=== PATIENT | female | born 1960 | race Caucasian/White ===

== ENCOUNTER 2023-11-05 14:40 | Emergency (ER) | payer MEDICARE, SELFPAY ==
[2023-11-05 14:47] VITALS: BP 95/65
--- NOTE | 2023-11-05 15:55 | ED.GENMED ---
History of Present Illness
General
Chief Complaint: Abdominal Symptoms
Source: patient
Exam Limitations: none
Time Seen by Provider: 11/05/23 15:47
Travel History
Have you had any contact with someone who has COVID-19?: No
Do you have any symptoms of coronavirus? Fever > 100 degrees, chills, cough, shortness of breath, sore throat, loss of taste or smell, muscle aches, or headache?: No
History of Present Illness
History of Present Illness:
63-year-old female presents with epigastric pain nausea lightheaded feeling. Started about 30 minutes after taking a Tylenol with codeine. Tylenol with codeine was taken for ongoing dental issues. She saw her dentist this morning. This was the
first dose of Tylenol with codeine. Medication was for a suspected fractured left lower molar. She is scheduled for root canal evaluation. Following the nausea and vomiting she had about 30 minutes of substernal chest pain. No radiation to the
back. No shortness of breath. The symptoms have resolved. Currently feeling improved but still has some mild nausea and some mild lightheaded feeling.
Past History
Past History
ED Past Medical History: Other (Migraines)
ED Past Surgical History: Cholecystectomy and Gynecological
Review of Systems
Review of Systems
All Other Systems: Not applicable
Constitutional: Denies fever
Respiratory: Denies trouble breathing
ABD/GI: Denies diarrhea, bloody stools or black stools
Phy Exam
Physical Exam
Physical Exam:
GENERAL: Alert and oriented in no apparent distress
EYE: Orbits normal.
NECK: Supple, no significant adenopathy.
ENT: Pharynx without erythema. Left lower molar appears normal
CARDIAC: Regular rate and rhythm without any obvious murmurs.
LUNGS: Clear breath sounds,normal
ABDOMEN: Soft, bowel sounds present. Minimal epigastric tenderness. No rebound or guarding no mass or hernia.
NEUROLOGICAL: Alert and oriented , grossly non-focal
SKIN: Warm and dry, no rash or lesion, no discoloration, skin intact.
MUSCULOSKELETAL: No edema,no deformity.Good color
PSYCH: Normal and appropriate interaction.
Course
Orders/Labs/Results
Orders:
Orders
11/05/23 14:50
Electrocardiogram (*1) Urgent
Reason for Study: Abdominal Pain
EKG- Treatment ONCE
11/05/23 15:55
Cardiac Monitoring- Treatment ONCE
IV Insert/Care/Rem.- Treatment PRN
0.9% Sodium Chloride 1000 ml [Nss] 1,000 ml IV BOLUS
Ondansetron Injectable [Zofran] 4 mg IV NOW STA
CR Obstruct Series W/pa Chest Urgent
Comment:
Reason For Exam: nausea. epigastric pain
Pulse Ox/cont/shift [RESP] Stat
Quantity: 1
11/05/23 16:17
Complete Blood Count/With Diff Urgent
Comprehensive Metabolic Panel Urgent
Lipase Urgent
Troponin I Urgent
11/05/23 18:12
Electrocardiogram (*1) Stat
Reason for Study: Other
Other Reason for Exam: chest pain
EKG- Treatment ONCE
11/05/23 18:17
Troponin I Urgent
Abnormal Lab Results
11/05/23
16:17
RBC 3.63 L 10^6/uL
(4.20-5.40)
Hgb 11.4 L g/dL
(12.0-16.0)
Hct 33.2 L %
(37.0-47.0)
MCH 31.4 H pg
(27.0-31.0)
Absolute Neuts (auto) 7.2 H 10^3/uL
(1.4-6.5)
Absolute Lymphs (auto) 0.8 L 10^3/uL
(1.2-3.4)
Neutrophils % 83.0 H %
(42.2-75.2)
Lymphocytes % 9.7 L %
(20.5-51.1)
Glucose 113 H mg/dl
(70-99)
AST 64 H U/L
(14-36)
11/05/23 16:17
11/05/23 16:17
Vital Signs
Initial and Last Documented VS:
Initial Vital Signs
Temp Pulse Resp BP Pulse Ox
98.7 F 86 18 95/65 100
11/05/23 14:47 11/05/23 14:47 11/05/23 14:47 11/05/23 14:47 11/05/23 14:47
Last Documented Vital Signs
Temp Pulse Resp BP Pulse Ox
98.7 F 81 18 98/60 99
11/05/23 14:47 11/05/23 19:15 11/05/23 19:15 11/05/23 19:02 11/05/23 18:15
MDM/Problems Addressed
Differential Diagnosis Includes:
63-year-old female with symptoms of nausea epigastric pain and lightheadedness starting 30 minutes after taking a Tylenol with codeine. Chronologically this is likely the cause. However with some resulting chest pain after vomiting some preceding
left dental pain cardiac workup will be done also. Again highly doubt cardiac. Clinically she has a nonsurgical abdomen. Her gallbladder is out. No clinical indication for CT or ultrasound.
*Pulse Oximetry
Patient hypoxic: no
*EKG
Interpreted by ED Provider?: Yes
Interpretation: normal
Comparison EKG: no comparison EKG present
Heart Rate: 76
Rate: normal
Rhythm: sinus
[employer]: normal axis
Interval: normal interval
QRS Pattern: normal QRS
Ischemia: no ischemia
*Critical Care Note
Total Time (30-74mins, 75-104mins- exclusive of procedures): Not Applicable
Update Note
Update Note:
Patient appears well and has remained medically stable. Blood pressures running in the high 90s over 60s. Normally is slightly higher than that. Minimal epigastric tenderness. No rebound or guarding no mass or hernia no pulsatile mass. Repeat
EKG is negative. Repeat troponin negative. I talked to her she is dry for the that she has not had any episodes here. Fluids were given. Repeat EKG normal sinus rhythm at 84 no acute changes. Repeat troponin negative. Chronologically all
consistent with the Tylenol with codeine. I did offer her to stay for further fluids with the slightly low blood pressure but patient states she is very anxious to go home.
ED Attending Note
-
Portions of this chart may have been created with voice recognition software.� Occasional wrong word or��sound alike� substitutions may have occurred due to the inherent limitations of voice recognition software.
Discharge Plan
Departure
Patient Disposition: Home (Routine Discharge)
Date of Disposition: 11/05/23
Time of Disposition: 19:21
Patient with high blood pressure during this ER visit?: No
Discharge Problem:
Epigastric pain/nausea, Suspect secondary to codeine medication
Instructions: Chest Pain (DC), Abdominal Pain
Referrals:
Tess Salas, DO [Family Provider] - Follow up in 2-3 days
Activity Restrictions/Additional Instructions:
Stop the Tylenol with codeine for pain. Tylenol alone would be the safest
Recommend taking a Pepcid tablet per day.
Stay well-hydrated.
Recheck with increased pain recurrent vomiting fever chest pain shortness of breath or any other concerning symptoms
Interventions
Interventions:
*Risk Screen - Suicide Last Done: 11/05/23 16:20
*General Assessment Last Done: 11/05/23 16:20
*Neglect/Abuse Screening Last Done: 11/05/23 16:20
*ED COVID-19 Vaccine History Last Done: 11/05/23 16:20
KL-Pnrcez-Vklrsvuwrm Assessment Last Done: 11/05/23 16:52
[2023-11-05] MEDS: NSS 1000 IV (16:12)
[2023-11-05] MEDS: ZOFRAN 4 MG IV (16:13)
[2023-11-05 16:18] VITALS: BP 103/59
[2023-11-05 16:19] VITALS: BP 103/59
[2023-11-05 16:33] LABS: % Basophils 0.3 % (0-2); % Eosinophils 1.4 % (0-6); % Immature Granulocytes 0.2 % (0-0.5); % Lymphocytes 9.7 % (20.5-51.1); % Monocytes 5.4 % (1.7-9.3); Absolute Eosinophils 0.1 10^3/uL (0-0.7); Absolute Lymphocytes 0.8 10^3/uL (1.2-3.4); Absolute Monocytes 0.5 10^3/uL (0.1-0.6); Absolute Neutrophils 7.2 10^3/uL (1.4-6.5); Hematocrit 33.2 % (37.0-47.0); Hemoglobin 11.4 g/dL (12.0-16.0); Mean Corp Hgb Conc. 34.3 g/dL (33.0-37.0); Mean Corpuscular Hgb 31.4 pg (27.0-31.0); Mean Corpuscular Volume 91.5 fL (81.0-99.0); Mean Platelet Volume 9.5 fL (7.4-10.4); Nucleated Red Blood Cells % 0 %; Platelet Count 241 10^3/uL (130-400); Red Blood Cell Count 3.63 10^6/uL (4.20-5.40); Red Cell Dist. Width 12.8 % (11.5-14.5); White Blood Cell Count 8.7 10^3/uL (4.8-10.8)
[2023-11-05 16:45] LABS: ALT (SGPT) 27 U/L (0-35); AST (SGOT) 64 U/L (14-36); Albumin 3.8 g/dl (3.5-5.0); Alkaline Phosphatase 56 U/L (38-126); Blood Urea Nitrogen 11 mg/dl (7-17); Carbon Dioxide 28 mmol/L (22-30); Chloride 102 mmol/L (98-107); Glucose 113 mg/dl (70-99); Potassium 3.8 mmol/L (3.5-5.1); Sodium 140 mmol/L (135-145); Total Bilirubin 0.4 mg/dl (0.2-1.3); Total Protein 6.9 g/dl (6.3-8.2); eGFR > 60.00
[2023-11-05 16:46] LABS: Lipase 121 U/L (23-300)
[2023-11-05 16:54] LABS: Troponin I < 0.012 ng/ml
[2023-11-05 17:00] VITALS: BP 100/65
[2023-11-05 18:00] VITALS: BP 93/60
[2023-11-05 18:51] LABS: Troponin I < 0.012 ng/ml
[2023-11-05 19:02] VITALS: BP 98/60
== END 2023-11-05 19:36 | disposition home or self-care (01) ==
LOC: EMR 14:40
PROVIDERS: EMERGENCY PHYSICIAN Emergency Medicine; FAMILY PHYSICIAN Family Medicine
DX: R10.13 Epigastric pain (principal); R42 Dizziness and giddiness; R07.9 Chest pain, unspecified; R11.0 Nausea
CPT/HCPCS: 99285; 96374; 96361; 74022; 80053; 83690; 84484; 85025; 93005

== ENCOUNTER → 2023-12-18 12:45 | Outpatient (REF) | payer MEDICARE, SELFPAY | LOC: PAVMRI 12:45 | PROVIDERS: ATTENDING PHYSICIAN Family Medicine | DX: R51.9 Headache, unspecified (principal); G89.29 Other chronic pain; G43.809 Other migraine, not intractable, without status migrainosus | CPT/HCPCS: 70551 ==